=== PATIENT | male | born 1970 | race African-American/Black ===

== ENCOUNTER 2017-03-13 08:45 | Inpatient (IN) ==
[2017-03-13] MEDS ORDERED: ONDANSETRON 4 MG/2 ML VIAL IV STA ×2 (10:49→12:13)
[2017-03-13] MEDS ORDERED: SODIUM CHLORIDE 0.9% 1,000 ML IV STA (10:49)
[2017-03-13] MEDS ORDERED: HYDROmorphone 2 MG/1 ML VIAL IV STA ×2 (10:49→12:12)
[2017-03-13 10:52] LABS: Apearance,Urine CLEAR (Clear); Bilirubin,Urine Negative (Negative); Blood, Urine Negative (Negative); Glucose,Urine (UA) Negative (Negative); Ketones,Urine Negative (Negative); Mucus,Urine Few /LPF (Occasional); Nitrite,Urine Negative (Negative); Protein,Urine 30 MG/DL; RBC,Urine <1 /HPF (0-4); Urine Color Yellow (Yellow); Urine Specific Gravity 1.017 (1.001-1.035); Urine Urobilinogen < 2.0 EU/DL (0.2-1.0); WBC,Urine 1 /HPF (0-6)
[2017-03-13] MEDS ORDERED: HYDROmorphone 2 MG/1 ML VIAL ONE ×2 (10:52→12:19)
[2017-03-13] MEDS ORDERED: ONDANSETRON ODT 4 MG TABLET PO ONE (10:53)
[2017-03-13 11:24] LABS: Basophils % 0.4 % (0.0-0.8); Eosinophils # 0.2 10*3/uL (0.0-0.87); Eosinophils % 3.4 % (0.00-10.9); Hematocrit 47.7 VOL% (42.0-52.0); Hemoglobin 15.2 GM/DL (14.0-18.0); Immature Granulocytes % 0.2 %; Immature Granulocytes Absolute 0.01 #; Lymphocytes # 2.5 10*3/uL (1.4-4.0); Mean Corpuscular HGB Conc 31.9 GM/DL (32-36); Mean Corpuscular Hemoglobin 26 PG (27-34); Mean Corpuscular Volume 80.3 FL (87-102); Mean Platelet Volume 9.7 FL (9.6-12.0); Monocytes # 0.5 10*3/uL (0.11-0.8); Monocytes % 9.9 % (1.7-12.7); Neutrophils # 1.5 10*3/uL (1.4-7.4); Neutrophils % 33.1 % (38.7-73.9); Platelet Count 236 T/CUMM (130-400); Red Blood Count 5.94 MC/CUMM (3.8-5.5); Red Cell Distribution Width 14.3 % (9.3-17.3); White Blood Count 4.7 T/CUMM (4-12)
[2017-03-13 11:40] LABS: Albumin 3.8 G/DL (3.4-5.0); Bilirubin,Total 0.4 MG/DL (0.2-1.0); Osmolality,Calculated 272.7 MOS/KG (273-304); Potassium 4.1 MMOL/L (3.5-5.1); Total Protein 8.4 G/DL (6.4-8.3)
[2017-03-13 11:50] LABS: Atypical Lymphocytes Few; Eosinophils 1 % (0-10); Giant Platelets Few; Hypochromasia Slight; Lymphocytes 58 % (20-55); Platelet Estimate Adequate; Segmented Neutrophils 36 % (50-85); Total Cells Counted 100
[2017-03-13] MEDS ORDERED: ONDANSETRON 4 MG/2 ML VIAL ONE (12:20)
[2017-03-13] MEDS ORDERED: ACETAMINOPHEN 325 MG TABLET PO PRN (14:18)
[2017-03-13] MEDS ORDERED: MORPHINE 2 MG/1 ML SYRINGE IV PRN (14:18)
[2017-03-13] MEDS ORDERED: ONDANSETRON 4 MG/2 ML VIAL IV PRN (14:18)
[2017-03-13] MEDS: DEXTROSE 5% NACL 0.45% 1,000 ML IV SCH (18:15)
[2017-03-14 05:55] LABS: Basophils % 0.6 % (0.0-0.8); Eosinophils # 0.2 10*3/uL (0.0-0.87); Eosinophils % 3.4 % (0.00-10.9); Hematocrit 44.5 VOL% (42.0-52.0); Hemoglobin 14.8 GM/DL (14.0-18.0); Immature Granulocytes % 0.2 %; Immature Granulocytes Absolute 0.01 #; Lymphocytes # 2.2 10*3/uL (1.4-4.0); Lymphocytes % 45.6 % (21.2-54.2); Mean Corpuscular HGB Conc 33.3 GM/DL (32-36); Mean Corpuscular Hemoglobin 26 PG (27-34); Mean Corpuscular Volume 77.7 FL (87-102); Mean Platelet Volume 9.8 FL (9.6-12.0); Monocytes # 0.6 10*3/uL (0.11-0.8); Monocytes % 12.2 % (1.7-12.7); Neutrophils # 1.8 10*3/uL (1.4-7.4); Platelet Count 237 T/CUMM (130-400); Red Blood Count 5.73 MC/CUMM (3.8-5.5); Red Cell Distribution Width 14.1 % (9.3-17.3); White Blood Count 4.8 T/CUMM (4-12)
[2017-03-14 06:19] LABS: Eosinophils 5 % (0-10); Lymphocytes 47 % (20-55); Segmented Neutrophils 43 % (50-85); Total Cells Counted 100
[2017-03-14 06:20] LABS: Atypical Lymphocytes Few; Giant Platelets Few; Hypochromasia 1+; Microcytosis Slight; Ovalocytes Slight; Platelet Estimate Adequate
[2017-03-14 06:25] LABS: Albumin 3.4 G/DL (3.4-5.0); Bilirubin,Total 1.2 MG/DL (0.2-1.0); Calcium 8.6 MG/DL (8.5-10.1); Osmolality,Calculated 269.8 MOS/KG (273-304); Potassium 3.6 MMOL/L (3.5-5.1); Total Protein 7.6 G/DL (6.4-8.3)
[2017-03-14] MEDS: DEXTROSE 5% NACL 0.45% 1,000 ML IV SCH ×3 (06:38→15:50)
[2017-03-14] MEDS: ALBUTEROL/IPRATROPIUM 3 ML NEB RESP TX SCH ×3 (14:26→20:50)
[2017-03-14] MEDS ORDERED: amLODIPine 2.5 MG TABLET ONE ×2 (16:50)
[2017-03-14] MEDS: amLODIPine 5 MG TABLET PO SCH (17:05)
[2017-03-14] MEDS: PANTOPRAZOLE 40 MG VIAL IV SCH (17:06)
[2017-03-15] MEDS: DEXTROSE 5% NACL 0.45% 1,000 ML IV SCH ×3 (02:55→23:10)
[2017-03-15 05:17] LABS: Basophils % 0.7 % (0.0-0.8); Eosinophils # 0.1 10*3/uL (0.0-0.87); Eosinophils % 3.1 % (0.00-10.9); Hematocrit 40.7 VOL% (42.0-52.0); Hemoglobin 13.1 GM/DL (14.0-18.0); Immature Granulocytes % 0.2 %; Immature Granulocytes Absolute 0.01 #; Lymphocytes % 48.6 % (21.2-54.2); Mean Corpuscular HGB Conc 32.2 GM/DL (32-36); Mean Corpuscular Hemoglobin 26 PG (27-34); Mean Platelet Volume 9.8 FL (9.6-12.0); Monocytes # 0.6 10*3/uL (0.11-0.8); Monocytes % 14.3 % (1.7-12.7); Neutrophils # 1.4 10*3/uL (1.4-7.4); Neutrophils % 33.1 % (38.7-73.9); Platelet Count 197 T/CUMM (130-400); Red Blood Count 5.09 MC/CUMM (3.8-5.5); Red Cell Distribution Width 14.2 % (9.3-17.3); White Blood Count 4.1 T/CUMM (4-12)
[2017-03-15 05:47] LABS: Bilirubin,Total 0.7 MG/DL (0.2-1.0); Calcium 8.5 MG/DL (8.5-10.1); Osmolality,Calculated 280.1 MOS/KG (273-304); Potassium 3.7 MMOL/L (3.5-5.1); Total Protein 6.7 G/DL (6.4-8.3)
[2017-03-15 05:51] LABS: Atypical Lymphocytes Few; Eosinophils 4 % (0-10); Giant Platelets Few; Hypochromasia 1+; Lymphocytes 52 % (20-55); Microcytosis Slight; Ovalocytes Slight; Platelet Estimate Adequate; Segmented Neutrophils 34 % (50-85); Total Cells Counted 100
[2017-03-15] MEDS: ALBUTEROL/IPRATROPIUM 3 ML NEB RESP TX SCH ×4 (07:10→20:28)
[2017-03-15] MEDS ORDERED: LIDOCAINE 2% 5 ML VIAL ONE (11:10)
[2017-03-15] MEDS ORDERED: PROPOFOL 200 MG/20 ML VIAL IV ONE (11:10)
[2017-03-15] MEDS ORDERED: BISACODYL 5 MG TABLET PO ONE (12:00)
[2017-03-15] MEDS: PANTOPRAZOLE 40 MG VIAL IV SCH (15:27)
[2017-03-15] MEDS: amLODIPine 5 MG TABLET PO SCH (15:32)
[2017-03-15] MEDS ORDERED: POLYETHYLENE GLYCOL POWDER 255 GM BOTTLE PO ONE (18:00)
[2017-03-16] MEDS: DEXTROSE 5% NACL 0.45% 1,000 ML IV SCH ×4 (00:24→08:43)
[2017-03-16] MEDS: ALBUTEROL/IPRATROPIUM 3 ML NEB RESP TX SCH ×3 (07:57→15:04)
[2017-03-16] MEDS: amLODIPine 5 MG TABLET PO SCH (08:40)
[2017-03-16] MEDS: PANTOPRAZOLE 40 MG VIAL IV SCH (10:20)
[2017-03-16 12:29] VITALS: BP 130/91
[2017-03-16] MEDS ORDERED: PROPOFOL 200 MG/20 ML VIAL IV ONE (13:00)
== END 2017-03-16 16:50 | disposition home or self-care (01) | DRG 392 ==
LOC: N.ED 08:45 → N.EDINP 14:10 → N.3E 15:52
PROVIDERS: ADMIT Surgery; ATTEND Surgery

== ENCOUNTER 2020-12-27 22:56 | Observation (INO) ==
[2020-12-28] MEDS ORDERED: SODIUM CHLORIDE 0.9% 500 ML IV STA (00:26)
[2020-12-28] MEDS ORDERED: HYDROmorphone 2 MG/1 ML VIAL IV STA (00:26)
[2020-12-28] MEDS ORDERED: ONDANSETRON 4 MG/2 ML VIAL IV STA (00:26)
[2020-12-28] MEDS ORDERED: PANTOPRAZOLE 40 MG VIAL IV STA (00:26)
[2020-12-28 01:24] LABS: Basophils % 0.2 % (0.0-0.8); Eosinophils # 0.1 10*3/uL (0.0-0.87); Eosinophils % 0.9 % (0.00-10.9); Hematocrit 44.1 VOL% (42.0-52.0); Hemoglobin 14.3 GM/DL (14.0-18.0); Immature Granulocytes % 0.2 %; Immature Granulocytes Absolute 0.01 #; Lymphocytes # 1.3 10*3/uL (1.4-4.0); Lymphocytes % 22.1 % (21.2-54.2); Mean Corpuscular HGB Conc 32.4 GM/DL (32-36); Mean Corpuscular Volume 79.5 FL (87-102); Monocytes % 9.2 % (1.7-12.7); Neutrophils % 67.4 % (38.7-73.9); Platelet Count 221 T/CUMM (130-400); Red Blood Count 5.55 MC/CUMM (3.8-5.5); Red Cell Distribution Width 13.9 % (9.3-17.3); White Blood Count 5.9 T/CUMM (4-12)
[2020-12-28 01:37] LABS: Amorphous Crystals,Urine Few /HPF (Few); Bilirubin,Urine Negative (Negative); Blood, Urine Negative (Negative); Glucose,Urine (UA) Negative (Negative); Ketones,Urine 5 mg/dL (Negative); Mucus,Urine Occasional /LPF (Occasional); Nitrite,Urine Negative (Negative); Protein,Urine 100 MG/DL; Urine Appearance Slightly Hazy (Clear); Urine Color Yellow (Yellow); Urine Specific Gravity 1.017 (1.001-1.035)
[2020-12-28 01:50] LABS: Albumin 3.5 G/DL (3.4-5.0); Bilirubin,Total 0.5 MG/DL (0.20-1.00); Potassium 3.5 MMOL/L (3.5-5.1); Total Protein 8.3 G/DL (6.4-8.2)
[2020-12-28] MEDS ORDERED: hydrALAZINE 20 MG/1 ML VIAL IV STA (02:07)
[2020-12-28] MEDS ORDERED: ONDANSETRON 4 MG/2 ML VIAL IV PRN (05:22)
[2020-12-28] MEDS ORDERED: ACETAMINOPHEN 325 MG TABLET PO PRN (05:22)
[2020-12-28] MEDS ORDERED: HYDROmorphone 2 MG/1 ML VIAL IV PRN (05:22)
[2020-12-28] MEDS: SODIUM CHLORIDE 0.9% 1,000 ML IV SCH ×2 (06:20→14:10)
[2020-12-28] MEDS ORDERED: hydrALAZINE 20 MG/1 ML VIAL IV PRN ×2 (07:02→07:05)
[2020-12-28] MEDS ORDERED: ONDANSETRON 4 MG TABLET PO PRN (07:27)
[2020-12-28] MEDS ORDERED: INFLUENZA VIRUS VACCINE 0.5 ML SYRINGE IM ONE (07:55)
[2020-12-28] MEDS: PIPERACILLIN/TAZOBACTAM 3,375 MG in SODIUM CHLORIDE 0.9% 100 ML IV SCH ×2 (08:09→16:10)
[2020-12-28] MEDS: amLODIPine 5 MG TABLET PO SCH (08:10)
[2020-12-28] MEDS: LISINOPRIL/HCTZ 20-25 MG TABLET PO SCH (08:11)
[2020-12-28] MEDS: PANTOPRAZOLE 40 MG VIAL IV SCH (08:12)
[2020-12-28] MEDS: PANTOPRAZOLE 20 MG TABLET PO SCH (08:14)
[2020-12-28] MEDS ORDERED: ENOXAPARIN 40 MG/0.4 ML SYRINGE SUBCUT SCH (21:00)
[2020-12-29] MEDS: PIPERACILLIN/TAZOBACTAM 3,375 MG in SODIUM CHLORIDE 0.9% 100 ML IV SCH ×2 (00:18→09:15)
[2020-12-29 05:46] LABS: Basophils % 0.4 % (0.0-0.8); Eosinophils # 0.1 10*3/uL (0.0-0.87); Eosinophils % 2.3 % (0.00-10.9); Hematocrit 42.7 VOL% (42.0-52.0); Hemoglobin 13.5 GM/DL (14.0-18.0); Immature Granulocytes % 0.2 %; Immature Granulocytes Absolute 0.01 #; Lymphocytes # 1.8 10*3/uL (1.4-4.0); Lymphocytes % 33.8 % (21.2-54.2); Mean Corpuscular HGB Conc 31.6 GM/DL (32-36); Monocytes % 10.4 % (1.7-12.7); Neutrophils % 52.9 % (38.7-73.9); Platelet Count 224 T/CUMM (130-400); Red Blood Count 5.21 MC/CUMM (3.8-5.5); Red Cell Distribution Width 14.2 % (9.3-17.3); White Blood Count 5.2 T/CUMM (4-12)
[2020-12-29 05:59] LABS: Bilirubin,Total 0.7 MG/DL (0.20-1.00); Calcium 8.6 MG/DL (8.5-10.1); Osmolality,Calculated 272.7 MOS/KG (273-304); Potassium 3.5 MMOL/L (3.5-5.1); Total Protein 7.3 G/DL (6.4-8.2)
[2020-12-29] MEDS: SODIUM CHLORIDE 0.9% 1,000 ML IV SCH ×3 (07:20→14:30)
[2020-12-29] MEDS: LISINOPRIL/HCTZ 20-25 MG TABLET PO SCH (09:14)
[2020-12-29] MEDS: amLODIPine 5 MG TABLET PO SCH (09:14)
[2020-12-29] MEDS: PANTOPRAZOLE 20 MG TABLET PO SCH (09:16)
[2020-12-29] MEDS: PANTOPRAZOLE 40 MG VIAL IV SCH (09:16)
[2020-12-29 12:04] VITALS: BP 133/102
== END 2020-12-29 15:00 | disposition home or self-care (01) ==
LOC: N.ED 22:56 → N.EDINP 22:56 → N.TELES 12-28 07:31
PROVIDERS: ADMIT Surgery; ATTEND Surgery